=== PATIENT | female | born 1935 | race Caucasian/White ===

== ENCOUNTER 2017-03-18 16:36 | Emergency (ER) | payer OTHER, MEDICARE ==
[2017-03-18 16:49] VITALS: BMI 13.7
--- NOTE | 2017-03-18 17:20 | DR.EXTPAIN ---
HPI - Time seen Time seen: 17:00 - PCP Primary Care Physician: - HPI Comment HPI Comment: PATIENTS DAUGHTER SAID SHE INJURED HER HAND WITH SKIN TEAR 05:00AM TODAY. THEY LEFT [facility] AND DRIVING TO [place]. THE HAND INCREASINGLY STARTED TO SWELL AND NOW IS BLUE, TENSE WITH COLD FINGERS. PATIENTS PULSES AND CAP REFILLS ARE INTACT. 3CM SKIN TEAR IS PRESENT AT BACK OF HAND. - Complaint/Symptoms Chief Complaint Doctor Comments: PAIN, SWELLING AND LACERATION RIGHT HAND SUSTAIN WITH SEAT BELT INJURY IN THE CAR TODAY. Chief Complaint:: PATIENT CUT HAND, iT IS SWOLLEN AND TENDER. - Nurses notes reviewed Nurses Notes Review: Yes - Source History Provided: Patient, Family Member - Mode of arrival Mode of Arrival: Wheelchair - Timing Onset of Chief Complaint: 03/18/17 - Context History of: Arthritis - Associated signs and symptoms Associated Signs and Symptoms: Pain, Swelling, Bruising, Other (SKIN TEAR.) PMH - PMH Past Medical History: Yes Past Medical History: Hypertension Past Surgical History: Yes Surgical History: Unknown - Family History History of Family Medical Conditions: (UNKNOWN) - Social History Does any household member use tobacco: Yes Alcohol Use: None Do you use any recreational Drugs:: No Lives With: Family Lives Where: Home - infectious screening In the last 2 months have you had wt loss of >10#?: NO Have you had fever, night sweats or hemotysis?: No Have you traveled outside the country in the last 6 months?: No Isolation: Standard ROS - Review of Systems Constitutional: negative: Chills, Fever Eyes: No Symptoms Reported. negative: Eye Pain, Discharge ENTM: No Symptoms Reported. negative: Ear Pain, Nose Discharge, Nose Congestion , Throat Pain Respiratoy: No Symptoms Reported Cardiovascular: No Symptoms Reported Gastrointestinal/Abdominal: No Symptoms Reported Genitourinary: No Symptoms Reported Neurological: No Symptoms Reported Musculoskeletal: Right, Hand (SWOLLEN AND TENSE.) Integumentary: Other (3CM SKIN TEAR BACK OF HAND.) Hematologic/Lymphatic: Easy Bruising Endocrine: No Symptoms Reported All Other Systems: Reviewed and Negative PE - Vital Signs Vitals: Temperature 97.7 F Pulse Rate [Left Brachial] 82 Pulse Rate 22 Respiratory Rate 16 Blood Pressure [Left Arm] 170/82 Blood Pressure 191/100 O2 Sat by Pulse Oximetry 97 - General Limitations: No Limitations, Other (DEMENTIA PRESENT.) - Head Head Exam: Normal Inspection - Eyes Eye exam: Normal Appearance - ENT ENT Exam: Normal External Ear Exam - Neck Neck Exam: Trachea Midline - Chest Chest Inspection: Symmetric Chest Wall Rise - Respiratory Respiratory Exam: Normal Lung Sounds Bilat Respiratory Exam: Bilateral Rhonchi, Lower Rhonchi - Cardiovascular Cardiovascular Exam: Regular Rate, Normal Rhythm, Normal Heart Sounds - Abdominal Exam Abdominal Exam: Normal Bowel Sounds, Soft. negative: Tenderness - Extremities Extremities Exam: Tenderness (LEFT HAND AND WRIST WITH SWELLING AND BRUISING. PULSE INTACT. CAP REFILL INTACT.) - Upper Extremities Hand Exam: Tenderness, Swelling, Laceration (SKIN TEAR 3 CM BACK RT HAND.). negative: Full ROM Neuromotor Exam: Normal Exam Upper Ext. Vascular Exam: Capillary Refill (INTACT), Radial Pulse (INTACT) - Neurological Neurological Exam: Alert, Oriented X3 - Psychiatric Psychiatric Exam: Anxious - Skin Skin Exam: Erythema Type of Lesion: Other (SKIN TEAR/3CM BACK RT HAND.) [facility] - Differential Diagnosis Differential Diagnosis: Contusion, Fracture, Laceration (SKIN TEAR), Open Fracture, Sprain Course - Treatment Treatment: CLIN[facility] BACTRIM IN ED. IV TAKEN OUT AND IV MEDS STOP. - Consultation Consultation Comments: PATIENT ACCEPTED FOR TRANSFER TO [facility]. FAMILY SIGN HER OUT AMA. DAUGHTER WILL DRIVE HER THERE THEN GO TO [facility]. DO NOT WANT HER FAMILY TO SEPERATE. - Education/Counseling Education/Counseling: Patient, Family, Education Educated On: Treatment, Diagnosis ROR - XRAY XRAY Interpreted by: Radiologist XRAY Findings: REPORT DISCUSS WITH PATIENT. - Diagnosis Discharge Problem: Skin tear Contusion of hand, right Qualifiers: Encounter type: initial encounter Qualified Code(s): S60.221A - Contusion of right hand, initial encounter Traumatic hematoma of right hand Qualifiers: Encounter type: initial encounter Qualified Code(s): S60.221A - Contusion of right hand, initial encounter - Discharge Plan Disposition: 07 AGAINST MEDICAL ADVICE Condition: Stable - Follow ups/Referrals Follow ups/Referrals: NFD,None [Primary Care Provider] - 3 days - Instructions
--- NOTE | 2017-03-18 18:11 | RAD ---
Right wrist, three views Indication: Wrist pain after injury Findings: There is marked generalized osteopenia, limiting evaluation of fine bony detail. No obvious cortical destruction or malalignment identified. 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 TFC chondrocalcinosis is noted. There is dorsal hand and wrist swelling. Impression: No acute right wrist fracture or subluxation identified, although evaluation is limited by marked ost eopenia. Marked dorsal soft tissue swelling. Degenerative changes as above. TFC chondrocalcinosis is nonspecific, but can be associated with CPPD arthropathy. Correlation recomm ended. Reported By:
--- NOTE | 2017-03-18 18:13 | RAD ---
Right hand, three views Indication: Hand pain after injury Findings: Evaluation of the fingers is limited due to partial flexion on all the images. There is marked dorsal soft tissue swelling. Generalized osteopenia limits evaluation of fine bony de tail. No obvious acute fracture or subluxation is seen. There are marked degenerative changes of the IP joints of the fingers with mild degenerative disease of the thumb and index finger MCP joints. Mar ked thumb CMC and triscaphe DJD is also noted. Impression: Marked soft tissue swelling of the hand without convincing acute skeletal injury. Generalized osteopenia and degenerative changes as above. Reported By:
[2017-03-18] MEDS ORDERED: ZOSYN VIAL 3.375 GM 3.375 GM in NS 100 ML IV + SPIKE MINIBAG* 100 ML IV ONE (20:52)
[2017-03-18] MEDS ORDERED: ZOSYN VIAL 3.375 GM IV ONE (20:55)
[2017-03-18] MEDS ORDERED: NS 100 ML IV 100 ML IV ONE (20:55)
[2017-03-18] MEDS ORDERED: CLEOCIN ONE (21:58)
[2017-03-18] MEDS ORDERED: BACTRIM DS TAB PO ONE ×2 (21:58→22:00)
[2017-03-18 22:19] VITALS: BP 170/82
[2017-03-19] MEDS ORDERED: CLEOCIN PO ONE (22:02)
== END 2017-03-18 22:05 | disposition left against medical advice (07) ==
LOC: EDBD 16:54 → ER 16:54
DX: S61.411A Laceration without foreign body of right hand, initial encounter (principal); S60.221A Contusion of right hand, initial encounter; W45.8XXA Other foreign body or object entering through skin, initial encounter; Y92.9 Unspecified place or not applicable
CPT/HCPCS: 73100; 73130; 96365; 99283; A4222; J2543